=== PATIENT | male | born 1970 | race Caucasian/White ===

== ENCOUNTER 2018-02-20 12:07 | Emergency (ER) | payer OTHER ==
[2018-02-20] MEDS: traMADol 50 MG TAB PO (12:51)
[2018-02-20] MEDS: IBUPROFEN 600 MG TAB PO (12:51)
== END 2018-02-20 13:08 | disposition home or self-care (01) ==
LOC: FTE 12:07
DX: M25.561 Pain in right knee (principal); Z87.891 Personal history of nicotine dependence
CPT/HCPCS: 99283